=== PATIENT | male | born 1970 | race Caucasian/White ===

== ENCOUNTER 2016-06-09 07:24 | Day surgery (SDC) | payer BC ==
[~2016-06-09] VITALS: Ht 177.8 cm; Wt 91.2 kg
--- NOTE | 2016-07-10 10:17 | OR ---
ADMIT: 06/09/2016 RM/LOC: [facility] MR#: [id number] [id number] [id number] DAWOOD PETERSEN [facility] [place], [place] [address] Operative/Delivery Room Report SEX: M AGE: 45 : 1970 SURGERY DATE: 06/09/2016 SURGEON: Siddharth Eckert MD PREPROCEDURE DIAGNOSIS: Right lower leg melanoma. POSTPROCEDURE DIAGNOSIS: Right lower leg melanoma. PROCEDURE: Right inguinal sentinel lymph node biopsy with right lower lateral leg wide-local excision of 3 cm diameter melanoma. INDICATIONS: The patient is a 45-year-old with a right lower leg melanoma, shave biopsy showed to be at least a 2 mm depth melanoma, who underwent preoperative localization, who presents for right inguinal sentinel node and wide local excision. DESCRIPTION OF PROCEDURE: The patient was taken to the operative room after preoperative localization with radiotracer. We then injected blue dye subdermally. Preoperatively, we prepped the entire right leg and groin and draped. Using a gamma probe, we easily identified the sentinel node in the right inguinal region, made a vertical 3 cm to 4 cm skin incision using a #15 blade. Dissection was carried down through the subcutaneous fascia where clearly there was a blue lymph node with high radiotracer uptake with almost 25,000 count, greater than 10 times background count, this was sent for permanent sectioning. The wound was closed with subcutaneous fascia layers, subdermal layer with interrupted 3-0 Vicryl and running 4-0 Vicryl subcuticular skin stitch. The wound was cleaned and dried and dressed. We then noted the shave biopsy incision site was about a centimeter diameter and then we measured 1 cm margins medially and laterally from the shave biopsy site to create almost a 3 cm wide ellipse oriented vertically. We used #15 blade to make this incision and carried it down through subcutaneous fat down to the muscular fascia using electrocautery. Sent the specimen off for permanent sectioning. Closed the wound with interrupted deep 3-0 Vicryl subdermal sutures and running 4-0 Vicryl subcuticular skin stitch. The wound was cleaned and dried and dressed. The patient tolerated the procedure without difficulty, transferred to recovery room in good condition. Siddharth Eckert MD/ betty JOB #: [id number] CC: Siddharth Eckert, Attending Physician Norberto Camacho, Family Physician
== END 2016-06-09 12:15 | disposition home or self-care (01) ==
LOC: SSS 07:24
PROC: 0HBKXZZ Excision of Right Lower Leg Skin, External Approach (ICD-10-PCS; principal; 2016-06-09)
PROC: 07BH0ZX Excision of Right Inguinal Lymphatic, Open Approach, Diagnostic (ICD-10-PCS; principal; 2016-06-09)
DX: C43.71 Malignant melanoma of right lower limb, including hip (principal); Z98.890 Other specified postprocedural states